=== PATIENT | female | born 1985 | race Caucasian/White ===

== ENCOUNTER → 2016-10-28 | Outpatient (CLI) | payer MEDICARE ==
--- NOTE | 2016-10-28 22:53 | MR ---
EXAMINATION TYPE: MR thoracic spine wo con DATE OF EXAM: 10/28/2016 5:43 PM COMPARISON: NONE HISTORY: Mid/lower back pain, maida hip/leg pain for several years Standard multiplanar, multisequence MRI departmental protocol Multiplanar, multisequence images of the thoracic spine were acquired. FINDINGS: Alignment is anatomic. Intervertebral disc signal and space is maintained at all levels. There is no evidence of degenerative disc disease. No abnormal signal seen in the visualized spinal cord or paraspinal soft tissues. At T9-T10 is central disc bulging but no canal stenosis or foraminal encroachment. At T6-T7 is very minimal central disc bulging with no canal stenosis or foraminal encroachment. Imaging was carried out to the level C6-C7 with evidence of a sizable left paracentral disc herniatio n with mass effect upon the thecal sac and compression of the spinal cord. Neural foramina remain pat ent. Dedicated cervical spine MRI recommended. Remaining levels visualized demonstrate no disc herniation, canal stenosis, or foraminal encroachment . IMPRESSION: 1. Left paracentral disc herniation C6-C7 is noted with spinal cord compression. No foraminal encroac hment. 2. Disc bulging T6-T7 and T9-T10 with no focal herniation, canal stenosis or foraminal encroachment. EXAMINATION TYPE: MR lumbar spine wo con DATE OF EXAM: 10/28/2016 5:43 PM COMPARISON: 06/09/2012 HISTORY: Mid/lower back pain, maida hip/leg pain for several years T1 and T2 axial and sagittal images of the lumbar spine are submitted. There is no abnormal signal seen within the visualized spinal cord or paraspinal soft tissues. At L1-2 there is noted degenerative disc disease, disc herniation, or canal stenosis. No foraminal en croachment. At L2-3 there is noted degenerative disc disease, disc herniation, or canal stenosis. No foraminal en croachment At L3-4 there is noted degenerative disc disease, disc herniation, or canal stenosis. No foraminal en croachment. Mild hypertrophic change of the facets. At L4-5 there is noted degenerative disc disease, disc herniation, or canal stenosis. No foraminal en croachment. Mild facet arthropathy. At L5-S1 there is moderate degenerative disc disease. There is left paracentral disc protrusion or sm all herniation with annular tear extending laterally to the left with mild left foraminal encroachmen t. Finding is stable. IMPRESSION: 1. At L5-S1 there is moderate degenerative disc disease. There is left paracentral disc protrusion or small herniation with annular tear extending laterally to the left with mild left foraminal encroach ment. Finding is stable.
--- NOTE | 2016-10-29 07:56 | XR ---
EXAMINATION TYPE: XR Hip Bilateral and AP pelvis, XR sacroiliac joint comp BILAT DATE OF EXAM: 10/28/2016 4:51 PM COMPARISON: Previous exam 28 October 2016 sacroiliac joints HISTORY: Hip pain and back pain TECHNIQUE: A single AP view of the pelvis is obtained. Two views of the left and right hip are obtain ed. 3 views of the sacroiliac joints FINDINGS: There is no acute fracture/dislocation evident in the pelvis. The hip and sacroiliac join ts appear symmetric and unremarkable. The overlying soft tissue appears unremarkable. Two views of bilateral hip show no acute fracture or dislocation. No focal lytic or sclerotic lesion seen in the proximal bilateral femur. The overlying soft tissue is unremarkable. Sacroiliac joints show no erosions or ankylosis. No significant marginal spurring. IMPRESSION: There is no acute fracture or dislocation in the pelvis or bilateral hip. No significant abnormality of the sacroiliac joints or pelvis.
== END | disposition home or self-care (01) ==
LOC: RADMRIMAIN 16:14
PROVIDERS: ATTEND Psychiatry & Neurology Pain Medicine
DX: M51.24 Other intervertebral disc displacement, thoracic region (principal); M51.37 Other intervertebral disc degeneration, lumbosacral region; M25.551 Pain in right hip; M25.552 Pain in left hip
CPT/HCPCS: 72146; 72148; 72202; 73521

== ENCOUNTER → 2016-12-15 | Outpatient (CLI) | payer MEDICARE ==
--- NOTE | 2016-12-15 11:26 | XR ---
EXAMINATION TYPE: XR Hip Bilateral Complete DATE OF EXAM: 12/15/2016 11:21 AM COMPARISON: 10/28/2016 HISTORY: Pain There is no evidence of erosive change or acute fracture. Mild hypertrophic change of the acetabulum is seen. There is a nonspherical morphology of the femoral head bilaterally. Joint spaces appear to be fairly well preserved. Impression 1. Correlate for femoral acetabular impingement.
--- NOTE | 2016-12-15 11:27 | XR ---
EXAMINATION TYPE: XR sacroiliac joint comp BILAT DATE OF EXAM: 12/15/2016 11:21 AM COMPARISON: 10/28/2016 HISTORY: Back TECHNIQUE: 4 views submitted FINDINGS: SI joints are symmetric. There is no erosive change. Very minimal sclerosis along the inferior margin the joint space. No sizable spur formation. Densities within the pelvis may be contained within the bowel rather than related to calcifications.. IMPRESSION: 1. Correlate for mild symmetric bilateral sacroiliitis.
--- NOTE | 2016-12-15 13:38 | MR ---
EXAMINATION TYPE: MR cervical spine wo con DATE OF EXAM: 12/15/2016 11:56 AM COMPARISON: 06/14/2012 HISTORY: 30-year-old female with Neck pain TECHNIQUE: Multiplanar, multisequence images of the cervical spine were acquired. FINDINGS: No craniocervical junction abnormality, predental space widening, or prevertebral soft tissue swellin g. There is normal alignment of the cervical spine. There is mild desiccation of the C6/C7 intervertebral disc with a redemonstrated left paracentral dis c herniation. This herniation appears larger as compared to prior examination now shows posterior apollo ular fissure. There is prominent abutment and indentation of the ventral cord without discrete cord s ignal abnormality or significant spinal canal stenosis. Dorsal CSF signal is maintained. Scattered mild facet degenerative change without significant neuroforaminal stenosis. No new focal disc herniation is seen. There is prominent red marrow which can be seen with anemia, obesity, smoking, chronic disease and ca n be correlated clinically. No abnormal T2 cord signal abnormality. No prevertebral or paravertebral soft tissue abnormality. IMPRESSION: 1. Degenerative disc disease at C6-C7 with progressive disc desiccation. The previously seen left par acentral disc herniation at this level is slightly larger now with a posterior annular fissure. 2. This causes greater degree of ventral cord indentation at this level. However, there is no checo c ord compression or canal compromise and no myelopathic cord signal change.
== END | disposition home or self-care (01) ==
LOC: RADMRIMAIN 10:52
PROVIDERS: ATTEND Psychiatry & Neurology Pain Medicine
DX: M50.223 Other cervical disc displacement at C6-C7 level (principal); M50.323 Other cervical disc degeneration at C6-C7 level; M54.9 Dorsalgia, unspecified; M25.551 Pain in right hip; M25.552 Pain in left hip
CPT/HCPCS: 72141; 72202; 73521

== ENCOUNTER 2021-09-30 15:56 | Emergency (ER) | payer MEDICARE ==
[2021-09-30 16:23] VITALS: BP 133/85; PULSE 111; RESP 20; TEMP 99.4
[2021-09-30 16:25] LABS: Glucose,Whole Blood 535 mg/dL (75-99)
== END 2021-09-30 16:58 | disposition left against medical advice (07) ==
LOC: EC 15:56
DX: R73.9 Hyperglycemia, unspecified (principal); Z53.21 Procedure and treatment not carried out due to patient leaving prior to being seen by health care provider
CPT/HCPCS: 11732; 36415

== ENCOUNTER → 2024-11-13 | Outpatient (CLI) | payer MEDICARE ==
[2024-11-13 11:43] LABS: Basophils % (A) 1 %; Eosinophils # (A) 0.2 k/uL (0-0.7); Eosinophils % (A) 4 %; HCT 40.4 % (34.0-46.0); Lymphocytes # (A) 1.7 k/uL (1.0-4.8); Lymphocytes % (A) 35 %; MCV 79.7 fL (80.0-100.0); Mean Platelet Volume 6.7; Monocytes # (A) 0.3 k/uL (0-1.0); Monocytes % (A) 5 %; Neutrophils # (A) 2.6 k/uL (1.3-7.7); Neutrophils % (A) 53 %; Platelet Count 332 k/uL (150-450); RBC 5.07 m/uL (3.80-5.40); RDW 15.2 % (11.5-15.5); WBC 4.8 k/uL (3.8-10.6)
[2024-11-13 12:12] LABS: MCH 27.5 pg (25.0-35.0); MCHC 34.7 g/dL (31.0-37.0)
[2024-11-13 12:21] LABS: Chloride 104 mmol/L (98-107); Potassium 3.9 mmol/L (3.5-5.1); Sodium 136 mmol/L (137-145)
[2024-11-13 13:07] LABS: African American GFR (CKD) >90 (>60 ml/min/1.73 sqM); Anion Gap 13 mmol/L; Non-African American GFR(CKD) >90 (>60 ml/min/1.73 sqM)
[2024-11-13 13:08] LABS: Blood Urea Nitrogen 16 mg/dL (7-17); Carbon Dioxide 19 mmol/L (22-30)
== END | disposition home or self-care (01) ==
LOC: LABWHC1 11:03
PROVIDERS: ATTEND Internal Medicine Nephrology
DX: R80.9 Proteinuria, unspecified (principal)
CPT/HCPCS: 36415; 80051; 82565; 84520; 85025; 86850; 86900; 86901

== ENCOUNTER 2024-11-14 08:13 | Day surgery (SDC) | payer MEDICARE ==
[2024-11-14] MEDS ORDERED: HYDROmorphone 0.5 MG/0.5 ML SYRINGE IVP PRN (08:51)
[2024-11-14 09:20] VITALS: TEMP 98.8
[2024-11-14] MEDS: ALPRAZolam 0.5 MG TAB PO PRN (09:26)
[2024-11-14] MEDS: DESMOPRESSIN ACETATE 24 MCG in SODIUM CHLORIDE 0.9% 50 ML IVPB ONE (09:30)
[2024-11-14 11:21] LABS: Glucose,Whole Blood 244 mg/dL (70-110)
--- NOTE | 2024-11-14 11:47 | CT ---
EXAMINATION TYPE: CT biopsy renal RT DATE OF EXAM: 11/14/2024 11:41 AM COMPARISON: 12/15/2011. CLINICAL INDICATION:Female, 38 years old with history of R80.9 PROTEINURIA, UNSPECIFIED; rt renal bx for proteinuria. TECHNIQUE: CT guided percutaneous endometrium right kidney biopsy using coaxial method. One or more CT dose redu ction strategies were utilized during this examination. Total CT dose 2293 mGycm. FINDINGS: The procedure was explained to the patient including risks of bleeding, bruising, infection, damage t o nearby organs and need for additional therapy including potential surgery. All questions were answ ered and consent was obtained. The previous studies were reviewed. The patient was placed on the CT couch in the supine position. The overlying skin was marked and prepped using sterile method. Timeout was taken per protocol. Follo wing administration of local anesthesia a 17 gauge coaxial needle was introduced on the right kidney. The coaxial needle tip was directed into the right renal cortex with CT guidance. Multiple 18 gaug e coaxial biopsies were then obtained. Following the procedure the needle was removed and sterile dressing was applied to the percutaneous site. Post biopsy imaging demonstrated no evidence of hemor rhage. Patient was taken for postprocedure observation in stable condition. IMPRESSIONS: Status post percutaneous right renal cortex biopsy as described above. Pathology results pending. [facility], , 11/14/2024 11:45 AM
[2024-11-14 12:47] LABS: Glucose,Whole Blood 241 mg/dL (70-110)
[2024-11-14 13:46] VITALS: PULSE 117
[2024-11-14 14:56] VITALS: BP 119/75; RESP 18
== END 2024-11-14 14:58 | disposition home or self-care (01) ==
LOC: RADPROMAIN 08:13
PROVIDERS: ATTEND Internal Medicine Nephrology
DX: R80.9 Proteinuria, unspecified (principal)
CPT/HCPCS: 82947; 36415; 50200; 77012; J2597

== ENCOUNTER 2025-03-27 11:05 | Day surgery (SDC) | payer MEDICARE ==
[~2025-03-27 11:05] MED LIST: LACTATED RINGERS 1,000 ML IV SCH; LIDOCAINE 1% (10MG/ML) FOR IV START INTRADERMA PRN
[2025-03-27] MEDS: IV FLUID CONTINUATION 1,000 ML IV ONE (12:31)
[2025-03-27] MEDS ORDERED: LIDOCAINE 1% INJ 10MG/ML (20 ML MDV) ONE (12:54)
[2025-03-27] MEDS ORDERED: PROPOFOL 10 MG/ML 20 ML VIAL IV ONE (12:54)
[2025-03-27 13:02] VITALS: TEMP 98.9
[2025-03-27 13:02] LABS: Glucose,Whole Blood 143 mg/dL (70-110)
--- NOTE | 2025-03-27 13:03 | P.PCN ---
Date of Procedure: 03/27/25 Procedure(s) Performed: BRIEF HISTORY: Patient is a 39-year-old, pleasant, white female scheduled for an upper endoscopy as a part of evaluation of longstanding GERD and intermittent episodes of nausea vomiting.. PROCEDURE PERFORMED: Esophagogastroduodenoscopy. PREOPERATIVE DIAGNOSIS: Longstanding history of GERD and intermittent episodes of nausea vomiting. IV sedation per anesthesia. PROCEDURE: After informed consent was obtained, the patient was brought into the endoscopy unit. IV sedation was administered by Anesthesia under continuous monitoring. Initially the Olympus GIF-140 video endoscope was inserted into the mouth. Esophagus intubated without any difficulty. It was gradually advanced into the stomach and duodenum and carefully examined. The bulb and the second part of the duodenum and mild duodenitis and biopsies were done from this area to rule out celiac disease. l. The scope at this time was withdrawn to the stomach, adequately insufflated with air, and upon careful examination, mucosa of the antrum, body and my diffuse gastritis and biopsies were done from this area. Mucosa of the, cardia and the fundus appeared normal. The scope was then withdrawn into the esophagus. The GE junction was located at 39 cm from the incisors. The esophagus appeared normal. There were no erosions or ulcerations seen and the patient tolerated the procedure well. IMPRESSION: 1. Antral diffuse gastritis. 2. Mild duodenitis. RECOMMENDATIONS: The findings of this examination were discussed with the patient as well as her family. Follow-up with the biopsy results. She was advised to continue with omeprazole 20 mg daily and follow antireflux measures..
[2025-03-27 13:28] VITALS: BP 127/89; PULSE 102; RESP 20
== END 2025-03-27 13:30 ==
LOC: ORWHC2ENDO 11:05
PROVIDERS: ATTEND Internal Medicine Gastroenterology
DX: K29.50 Unspecified chronic gastritis without bleeding (principal); K29.80 Duodenitis without bleeding; K21.9 Gastro-esophageal reflux disease without esophagitis; E11.43 Type 2 diabetes mellitus with diabetic autonomic (poly)neuropathy; K58.9 Irritable bowel syndrome, unspecified; M06.9 Rheumatoid arthritis, unspecified; M35.1 Other overlap syndromes; G43.909 Migraine, unspecified, not intractable, without status migrainosus; Z79.899 Other long term (current) drug therapy; Z79.4 Long term (current) use of insulin; Z79.84 Long term (current) use of oral hypoglycemic drugs; Z88.2 Allergy status to sulfonamides; Z88.8 Allergy status to other drugs, medicaments and biological substances
CPT/HCPCS: 81025; 88305; 43239; J2003; J2704